=== PATIENT | female | born 1965 | race Native Hawaiian/Other Pacific Islander ===

== ENCOUNTER 2018-08-23 10:54 | Emergency (ER) | payer OTHER ==
[~2018-08-23] VITALS: Ht 160 cm; Wt 99.8 kg
[2018-08-23 11:07] VITALS: TEMP 97.5
[2018-08-23] MEDS ORDERED: CELEXA40 MG PO (11:15)
[2018-08-23] MEDS ORDERED: REQUIP1 MG PO (11:15)
[2018-08-23] MEDS ORDERED: METFORMIN HYD1000 M1 PO (11:15)
[2018-08-23 12:23] VITALS: BP 150/71
== END 2018-08-23 12:23 | disposition home or self-care (01) ==
LOC: ED 10:54
DX: M79.604 Pain in right leg (principal)
CPT/HCPCS: 85379; 99282